=== PATIENT | male | born 1940 | race Caucasian/White ===

== ENCOUNTER 2018-11-30 10:10 | Emergency (ER) | payer MEDICARE, BC ==
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
[2018-11-30] MEDS ORDERED: GI Cocktail 45 ML BOTTLE PO ONE (11:33)
[2018-11-30 12:35] LABS: ANION GAP 14.4 mmol/L (5-15); CHLORIDE,CL 105 mmol/L (98-115); SODIUM,NA 140 mmol/L (136-145)
[2018-11-30] MEDS ORDERED: Sodium Chloride 0.9% 1,000 ML ONE (12:56)
[2018-11-30] MEDS ORDERED: Sodium Chloride 0.9% 1,000 ML IV ONE (12:59)
[2018-11-30] MEDS ORDERED: Acetaminophen 500 MG Tab PO ONE (13:15)
--- NOTE | 2018-11-30 13:16 | CR ---
[id number] RAD/RAD Chest PA And Lateral EXAM: RAD Chest PA And Lateral CLINICAL DATA: COUGH AND FEVER COMPARISON: NO PREVIOUS SIMILAR EXAM IS AVAILABLE. FINDINGS: There is a left upper lobe opacity. There is scarring at both lung bases. The cardiac silhouette is mildly prominent. There appears to be pleural plaquing on the left. There is diaphragmatic pleural calcification. There is likely previous asbestos exposure. The lungs are hyperaerated. IMPRESSION: PLEURAL DISEASE LEFT HEMITHORAX. PREVIOUS ASBESTOS EXPOSURE. CONSIDER CONTRAST CT CHEST TO CHECK FOR MESOTHELIOMA. Edgardo Mendiola MD 11/30/18 [id number] Thank you for allowing us to participate in the care of your patient.
[2018-11-30] MEDS ORDERED: Losartan 50 MG Tab PO ONE (15:49)
== END 2018-11-30 16:04 ==
LOC: KA.ED 10:10
DX: Z02.89 Encounter for other administrative examinations (principal); Z88.0 Allergy status to penicillin; Z79.899 Other long term (current) drug therapy
CPT/HCPCS: 36415; 71046; 80048; 82962; 84484; 85025; 93005; 96360; 99283; 99284; A9270; J7030